=== PATIENT | female | born 1990 | race Caucasian/White ===

== ENCOUNTER 2016-10-09 03:38 | Inpatient (IN) | payer MEDICAID ==
[~2016-10-09] VITALS: Ht 154.9 cm; Wt 68.4 kg
--- NOTE | ~2016-10-09 | OR ---
PATIENT'S NAME: IJEOMA ANDERSON [facility] AGE: 26 Y [address] ROOM: [place] [address] LOCATION: GOBS ADMIT DATE: 10/09/2016 OR/Procedure Report DISCHARGE DATE: FAMILY PHYSICIAN: PHYSICIAN, UNKNOWN ATTENDING PHYSICIAN: Alexis Quezada SURGEON: Alexis Quezada MD [employer] SUPERVISOR: No support assistant. DATE OF PROCEDURE: 10/09/2016 PREOPERATIVE DIAGNOSIS: Term intrauterine , spontaneous labor. POSTOPERATIVE DIAGNOSIS: Term intrauterine , spontaneous labor. PROCEDURE: Normal spontaneous vaginal delivery. ANESTHESIA: Epidural. ESTIMATED BLOOD LOSS: 100 mL. CLINICAL INDICATION: Ijeoma Anderson is a 26-year-old, , white female, 4 para 3, who presented in spontaneous labor. She would progress steadily to complete cervical dilatation and push effectively. FINDINGS: Delivery of viable 6 pound 2 ounce male . score 10 at one minute, 10 at five minutes. umbilical arterial cord blood gases pending at the time of dictation. True knot in the umbilical cord. TECHNIQUE OF PROCEDURE: The patient was left in Labor and Delivery room, prepped and draped in usual fashion. Labor epidural was sufficient for delivery. She would deliver a viable 6 pound 2 ounce male infant over an intact perineum without laceration. The umbilical cord was doubly clamped, the intervening segment was cut. was handed off to the mother and later to awaiting nursing services. umbilical arterial cord blood and venous cord blood were obtained for blood gas analysis and routine studies respectively. There was a true knot in the umbilical cord. The placenta delivered spontaneously intact with 3 vessels. Exploration of the cervix and vaginal sidewalls noted them to be intact. The patient tolerated procedure well, remained in labor and delivery room in good condition. ALEXIS QUEZADA MD [facility] [place] PATIENT'S NAME: IJEOMA ANDERSON [facility] AGE: 26 Y [address] ROOM: [place] [address] LOCATION: [facility] ADMIT DATE: 10/09/2016 OR/Procedure Report DISCHARGE DATE: FAMILY PHYSICIAN: PHYSICIAN, UNKNOWN ATTENDING PHYSICIAN: Alexis Quezada /[id number] d: 10/10/16 0014 t: 10/14/16 0733, OPERATIVE SUMMARY
[2016-10-09 04:29] LABS: BASOPHIL % 0.2 %; EOSINOPHIL # 0.1 K/uL (0.0-0.5); EOSINOPHIL % 0.8 %; HEMATOCRIT 32.9 % (33.0-46.0); HEMOGLOBIN 11.3 g/dL (11.0-15.0); IMMATURE GRANULOCYTE # 0.1 K/uL (0.0-0.3); IMMATURE GRANULOCYTE % 0.7 %; LYMPHOCYTE % 15.5 %; MCH 27.6 pg (27.0-34.0); MCHC 34.3 gm/dL (32.0-36.5); MCV 80.4 fl (83.0-98.0); MONOCYTE # 1.4 K/uL (0.0-1.0); MONOCYTE % 10.5 %; MPV 8.8 fl (9.4-12.4); NEUTROPHIL # (ANC) 9.5 K/uL (1.8-7.8); NEUTROPHIL % 72.3 %; NRBC % 0 /100WBC (0-0.00); PLATELET COUNT 317 K/uL (150-450); RBC 4.09 M/uL (3.50-5.00); RDW-CV 13.2 % (11.9-14.6); WBC 13.1 K/uL (4.0-11.0)
[2016-10-09 07:00] LABS: BICARBONATE 24.4 mmol/L (18.0-23.0); PCO2 57 mmHg (35-45); PO2 21 mmHg (80-90)
--- NOTE | 2016-10-09 15:47 | NUR ---
Significant Event: Follow up: VSS, recovery & tidy complete. Voiding well, no clots reported. Medicated with percocet 1) @ 1532. Does have ringworm on L) inner thigh, which is covered with tegaderm, also had 1 tab of deflucon. ARMOND sherwood'd. Plan home tomorrow.
--- NOTE | 2016-10-10 04:41 | NUR ---
VSS, fundus firm, lochia small, emptying bladder without difficulty. nothing for pain tonight, refused stool softener. planning on home today. does have ringworm on her thigh that is covered with a tegaderm. Diflucan ordered daily.
[2016-10-10 04:59] LABS: BASOPHIL % 0.3 %; EOSINOPHIL # 0.1 K/uL (0.0-0.5); EOSINOPHIL % 1.2 %; HEMATOCRIT 28.8 % (33.0-46.0); HEMOGLOBIN 9.6 g/dL (11.0-15.0); IMMATURE GRANULOCYTE # 0.1 K/uL (0.0-0.3); IMMATURE GRANULOCYTE % 0.9 %; LYMPHOCYTE # 2.4 K/uL (0.8-4.0); LYMPHOCYTE % 21.2 %; MCH 27.4 pg (27.0-34.0); MCHC 33.3 gm/dL (32.0-36.5); MCV 82.1 fl (83.0-98.0); MONOCYTE # 1.3 K/uL (0.0-1.0); MONOCYTE % 11.5 %; MPV 8.9 fl (9.4-12.4); NEUTROPHIL # (ANC) 7.4 K/uL (1.8-7.8); NEUTROPHIL % 64.9 %; NRBC % 0 /100WBC (0-0.00); PLATELET COUNT 264 K/uL (150-450); RBC 3.51 M/uL (3.50-5.00); RDW-CV 13.5 % (11.9-14.6); WBC 11.3 K/uL (4.0-11.0)
[2016-10-10] MEDS ORDERED: PERCOCET 5-3251 EACH PO (08:56)
== END 2016-10-10 14:15 | disposition disaster alternative care site (69) | DRG 775 ==
LOC: GOBS 03:38 → GOBM 03:38 → GOBS 04:10
PROVIDERS: ADMIT Obstetrics & Gynecology
PROC: 10E0XZZ Delivery of Products of Conception, External Approach (ICD-10-PCS; principal; 2016-10-09)
DX: O69.2XX0 Labor and delivery complicated by other cord entanglement, with compression, not applicable or unspecified (principal); Z37.0 Single live birth; Z3A.37 37 weeks gestation of pregnancy
CPT/HCPCS: J2001; J2590; J3010; J7120